=== PATIENT | male | born 1990 | race African-American/Black ===

== ENCOUNTER 2022-10-30 07:25 | Emergency (ER) | payer SELFPAY | END 2022-10-30 08:00 | disposition home or self-care (01) | LOC: CSHERS 07:25 | DX: N48.29 Other inflammatory disorders of penis (principal) | CPT/HCPCS: 99283 ==

== ENCOUNTER 2023-03-29 18:42 | Emergency (ER) | payer OTHER ==
[2023-03-29 19:09] LABS: Bilirubin Neg (Negative); Blood, Urine 10 (Negative); Clarity Clear (Clear); Glucose, Urine (Dipstick) Normal (Negative); Ketone, Urine 5 mg/dL (Negative); Leukocyte Negative (Negative); Nitrite Negative (Negative); Protein, Urine (Dipstick) 15 mg/dl (Neg-Trace); Specific Gravity, Urine 1.015 (1.005-1.030)
[2023-03-29 19:22] LABS: CAUTI Indications for Culture Dysuria,urgency,freq; Squamous Epithelial 0-3 HPF (0-3); WBC/HPF 0-3 HPF (0-3)
[2023-03-29 19:23] LABS: Bacteria/HPF 1+ HPF (None Seen)
[2023-03-29 19:24] LABS: Mucous/LPF 2+ LPF (<2+)
[2023-03-29 19:25] LABS: Urine Culture Reflex No No
[2023-03-30 02:21] LABS: Chlam.trachomatis by PCR,Urine Not Detected (NotDetected); GC N.gonorrhoeae PCR,UrineVOID Not Detected (NotDetected)
== END 2023-03-29 20:12 | disposition home or self-care (01) ==
LOC: CSHERS 18:42
DX: A63.0 Anogenital (venereal) warts (principal); K59.00 Constipation, unspecified; Z87.891 Personal history of nicotine dependence
CPT/HCPCS: 81001; 87491; 87591; 99283